=== PATIENT | female | born 1955 | race Caucasian/White ===

== ENCOUNTER 2016-09-04 05:21 | Day surgery (SDC) | payer OTHER ==
[~2016-09-04] VITALS: Ht 157.5 cm; Wt 61.2 kg
[~2016-09-04 05:21] MED LIST: LEVO-T75 MCG PO; LEVO-T88 MCG PO; LIPITOR10 MG PO; PROTONIX40 MG PO
[2016-09-04 06:02] VITALS: BP 147/96
[2016-09-04 09:32] VITALS: BP 130/84
[2016-09-04 10:27] VITALS: BP 133/85
== END 2016-09-04 10:44 | disposition home or self-care (01) ==
LOC: SDC 05:21
PROC: 0JBD0ZZ Excision of Right Upper Arm Subcutaneous Tissue and Fascia, Open Approach (ICD-10-PCS; principal; 2016-09-04)
DX: D17.79 Benign lipomatous neoplasm of other sites (principal); E78.5 Hyperlipidemia, unspecified; E07.9 Disorder of thyroid, unspecified
CPT/HCPCS: 88304; J0131; J0690; J1100; J2250; J2405; J3010